=== PATIENT | male | born 1950 | race Caucasian/White ===

== ENCOUNTER → 2017-12-01 | Outpatient (CLI) | payer OTHER ==
[~2017-12-01] VITALS: Ht 180.3 cm; Wt 65.8 kg
[~2017-12-01] MED LIST: NOHOMEMEDICATIONS; NORCO 5-325 TA1 EACH PO; ZOCOR 10 MG TAB10 M1 PO
--- NOTE | ~2017-12-01 | S ---
[facility] [address] [place] [address] SURGICAL PATH RPT PROCEDURE Name: BHAVIN CARR Room #: REG [facility] Yina.#: [id number] Admission: 12/01/17 Date of : 46 Discharge: Report #: [id number] Path Case #: [id number] PATHOLOGY REPORT COLLECTION DATE: 12/01/2017 RECEIVED DATE: 12/01/2017 SUBMITTING PHYS: Dr. Rivera Stark OTHER PHYS: Dr. Colby Cardenas SPECIMEN(S) RECEIVED: A.Polyp at sigmoid colon * * * * * * * * * * * * FINAL DIAGNOSIS: Polyp, at sigmoid colon, endoscopic biopsy: - Tubular adenoma. - Negative for high-grade dysplasia. (IUV:saúl; 12/02/2017) PATHOLOGIST: Danielle Sutherland M.D. REPORT ELECTRONICALLY SIGNED BY: Danielle Sutherland M.D. DATE/TIME: 12/02/2017 13:19 * * * * * * * * * * * * GROSS PATHOLOGY: Received in formalin labeled "Bhavin Carr, polyp at sigmoid colon," is a 1.0 x 0.4 x 0.3 cm polypoid piece of rob[place]o soft tissue. The margin is inked and the tissue is sectioned perpendicular to the margin and submitted in its entirety in cassette A1. (TSD; 12/01/2017) CLINICAL HISTORY: Pre-OP DX: Screening, abdominal pain Post-OP DX: Colon polyp, internal hemorrhoids, external hemorrhoids INITIAL CPT CODE(S): A; 08796 Professional services performed by [facility] at [facility] [address], [place] [address] Technical services performed by [facility] at [address] [place] [id number]. [facility] [address] [place] [address] SURGICAL PATH RPT PROCEDURE Name: BHAVIN CARR Room #: REG ANTIONETTE Bran.#: [id number] Admission: 12/01/17 Date of : 46 Discharge: Report #: [id number] Path Case #: [id number] [facility] [address] [address] PHONE: [phone] DIRECTOR: Basil Ghotra M.D. * * * END OF REPORT * * *
--- NOTE | ~2017-12-01 | P ---
[facility] [address] [address] PROCEDURE REPORT Name: KERVINCHELY ALDRIDGE [facility] [id number] Admission: 12/01/17 Attend Phys: Rivera Edwards Discharge: Date of : 46 Report #: [id number] THIS REPORT FOR: //name// CC: Rivera Cardenas DATE OF SERVICE: 12/01/2017 PROCEDURE PERFORMED: Colonoscopy with polypectomy. HISTORY OF PRESENT ILLNESS: The patient is a 66-year-old male who presents today for routine screening colonoscopy. Denies any significant symptoms over the years; however, he does report some constipation at times. No family history of colon cancer. DESCRIPTION OF PROCEDURE: The risks and benefits of the procedure were explained to the patient, those risks including, but not limited to bleeding, perforation, and the risk of sedation. He understood these risks and gave informed consent. Sedation was given using propofol per anesthesia. Next, a digital rectal exam was initially performed, which showed a single external hemorrhoid, otherwise normal. Next, using a standard Fujinon colonoscope, the scope was placed in the patient's anus and advanced under direct vision to the cecum. The overall prep was excellent. The cecum and ileocecal valve were normal in appearance. Terminal ileum was intubated and normal in appearance. Ascending, transverse and descending colon were normal. In the sigmoid colon, there was an 8-mm pedunculated polyp. This was removed by snare cautery. Otherwise, normal. The rectal mucosa was normal. On retroflexion, single small nonbleeding internal hemorrhoid was noted. Again, single external hemorrhoid was noted as well. The scope was then withdrawn and the procedure terminated. The patient tolerated the procedure well. IMPRESSION: 1. Sigmoid colon polyp. 2. Internal and external hemorrhoids. 3. Otherwise, normal colonoscopy. RECOMMENDATIONS: 1. Await biopsy results. 2. Repeat colonoscopy in 5 years. 3. Recommend a trial of daily fiber or MiraLax. If there is no improvement, would consider ultrasound or CT scan of the abdomen and pelvis in the future. [facility] [address] [place] [address] PROCEDURE REPORT Name: CHELY GALEANA Room #: REG ANTIONETTE Castano#: [id number] Admission: 12/01/17 Attend Phys: Rivera Edwards Discharge: Date of : 46 Report #: [id number] Thank you for allowing me to participate in his care. <ELECTRONICALLY SIGNED> By: Rivera Stark MD 12/06/17 [id number] Rivera Stark MD /nt
== END | disposition home or self-care (01) ==
LOC: GI 06:28
DX: D12.5 Benign neoplasm of sigmoid colon (principal); K64.8 Other hemorrhoids; K64.4 Residual hemorrhoidal skin tags; E78.5 Hyperlipidemia, unspecified; F17.210 Nicotine dependence, cigarettes, uncomplicated; Z98.890 Other specified postprocedural states; Z79.899 Other long term (current) drug therapy
CPT/HCPCS: 62110; 62900